=== PATIENT | female | born 1980 | race Asian ===

== ENCOUNTER 2016-08-11 22:27 | Emergency (ER) | payer OTHER ==
[~2016-08-11] VITALS: Ht 160 cm; Wt 51.5 kg
[2016-08-11 23:32] LABS: HEMATOCRIT 37.7 % (36.0-46.0); MCH 32.1 PG (29.0-34.0); MCHC 34.2 G/DL (30.0-36.0); MCV 93.8 FL (83-99); MEAN PLAT.VOLUME 8.8 uM^3 (9.5-12.4); PLATELET COUNT 257 K/uL (156-360); RBC DIS.WIDTH-CV 11.6 % (11.8-14.6); RED BLOOD COUNT 4.02 M/uL (3.80-5.20); WHITE BLOOD COUNT 11.2 K/uL (4.1-10.2)
[2016-08-11 23:52] LABS: QUANTITATIVE HCG 13648.9 MIU/ML
[2016-08-12 00:21] LABS: ADD MIUA? NO; BILIRUBIN NEGATIVE; BLOOD NEGATIVE; COLOR YELLOW ((YELLOW)); GLUCOSE (STRIP) NEGATIVE; KETONES NEGATIVE; LEUKOCYTES NEGATIVE; NITRITE NEGATIVE; PROTEIN (STRIP) NEGATIVE; UCUL ADDED? NO; UROBILINOGEN 0.2 MG/DL (0.2-1.0)
[2016-08-12 01:04] VITALS: BP 120/71
== END 2016-08-12 01:05 | disposition home or self-care (01) ==
LOC: EME 22:27 → EXP 22:27
PROVIDERS: Physician Assistant Medical
DX: O9A.211 Injury, poisoning and certain other consequences of external causes complicating pregnancy, first trimester (principal); S39.91XA Unspecified injury of abdomen, initial encounter; Y04.0XXA Assault by unarmed brawl or fight, initial encounter; O09.511 Supervision of elderly primigravida, first trimester; Z3A.01 Less than 8 weeks gestation of pregnancy; M25.559 Pain in unspecified hip; Z91.81 History of falling; Y99.0 Civilian activity done for income or pay
CPT/HCPCS: 76801; 81003; 82550; 84702; 85027; 99281; 99283